=== PATIENT | male | born 1945 | race Caucasian/White ===

== ENCOUNTER 2020-12-06 08:04 | Day surgery (SDC) | payer OTHER, MEDICARE ==
[2020-11-30 10:50] VITALS: BMI 28.5
[2020-12-06] MEDS: PHENYLEPHRINE 2.5% OPHTH SOLN 15 ML BOTTLE ONE ×3 (08:50→09:00)
[2020-12-06] MEDS: CIPROFLOXACIN 0.3% EYE DROPS 5 ML BOTTLE ONE ×3 (08:50→09:00)
[2020-12-06] MEDS: TROPICAMIDE 1% OPHTH SOLN 15 ML BOTTLE ONE ×3 (08:50→09:00)
[2020-12-06] MEDS: CYCLOPENTOLATE 2% OPHTH SOLN 2 ML BOTTLE ONE ×3 (08:50→09:00)
[2020-12-06] MEDS ORDERED: MIDAZOLAM HCL 2 MG/2 ML SINGLE DOSE VIAL ONE (09:37)
[2020-12-06] MEDS ORDERED: TETRACAINE 0.5% OPHTH SOLN 2 ML BOTTLE ONE (09:45)
[2020-12-06] MEDS ORDERED: NEO/POLYMYX B SULF/DEXAMETH OPHTHALMIC 5ML BOTTLE ONE (09:45)
[2020-12-06] MEDS ORDERED: BSS (NA/CA/MG/K) BALANCED SALT SOLUTION OPHTH SOLN 15 ML BOTTLE ONE (09:45)
[2020-12-06] MEDS ORDERED: LIDOCAINE 1% P/F 10 MG/ML VIAL ONE (09:45)
[2020-12-06] MEDS ORDERED: CARBACHOL 0.01% INTRA-OCULAR 1.5 ML VIAL ONE (09:45)
[2020-12-06] MEDS ORDERED: PHENYLEPHRINE/KETOROLAC 4 ML VIAL IO ONE (10:04)
[2020-12-06 10:50] VITALS: TEMP 98
[2020-12-06 11:14] VITALS: BP 135/89; PULSE 77
== END 2020-12-06 11:10 | disposition home or self-care (01) ==
LOC: FASU 08:04
PROVIDERS: ATTEND Ophthalmology
PROC: 08RK3JZ Replacement of Left Lens with Synthetic Substitute, Percutaneous Approach (ICD-10-PCS; principal; 2020-12-06 10:02)
DX: H26.8 Other specified cataract (principal)
CPT/HCPCS: J1097

== ENCOUNTER 2023-10-09 07:32 | Day surgery (SDC) | payer OTHER, MEDICARE ==
[2023-10-08 09:43] VITALS: BMI 28.1
[2023-10-09] MEDS ORDERED: PROPOFOL 100 ML ONE (07:45)
[2023-10-09] MEDS ORDERED: LIDOCAINE HCL/PF 2% SDV 5ML VIAL ONE (07:45)
[2023-10-09 08:59] VITALS: TEMP 98
[2023-10-09 09:01] VITALS: BP 106/67; RESP 19
[2023-10-09 09:02] VITALS: PULSE 66
== END 2023-10-09 09:02 | disposition home or self-care (01) ==
LOC: FASU-ENDO 07:32
PROVIDERS: ATTEND Internal Medicine Gastroenterology
PROC: 0DJD8ZZ Inspection of Lower Intestinal Tract, Via Natural or Artificial Opening Endoscopic (ICD-10-PCS; principal; 2023-10-09 08:13)
DX: Z12.11 Encounter for screening for malignant neoplasm of colon (principal); Z80.0 Family history of malignant neoplasm of digestive organs; K57.30 Diverticulosis of large intestine without perforation or abscess without bleeding